=== PATIENT | female | born 1985 | race Caucasian/White ===

== ENCOUNTER 2017-04-20 10:01 | Emergency (ER) | payer MEDICAID ==
[2017-04-20 10:14] VITALS: RESP 18
[2017-04-20] MEDS ORDERED: Naproxen 550 mg Tab PO STA (11:05)
[2017-04-20] MEDS ORDERED: Naproxen 550 mg Tab PO ONE (11:08)
--- NOTE | 2017-04-20 11:45 | C.PDOC ---
History Of Present Illness Pt c/o lesion on left arm. Pt states she had subjective fever as well. She went to her PMD and was started on Clindamycin. Time Seen by Provider: 04/20/17 10:41 Chief Complaint (Nursing): Abnormal Skin Integrity History Per: Patient Onset/Duration Of Symptoms: Days (3) Current Symptoms Are (Timing): Still Present Location Of Injury: Left: Arm Severity: Moderate Additional History Per: Prior Records Past Medical History Reviewed: Historical Data, Nursing Documentation, Vital Signs Vital Signs: Last Vital Signs Temp 99.2 F 04/20/17 10:11 Pulse 101 H 04/20/17 10:11 Resp 18 04/20/17 10:11 BP 113/76 04/20/17 10:11 Pulse Ox 100 04/20/17 10:11 - Medical History PMH: No Chronic Diseases Surgical History: No Surg Hx - [facility] LOW CERVICAL (05/15/13) Family History: States: Unknown Family Hx - Social History Hx Tobacco Use: No Hx Alcohol Use: Yes Hx Substance Use: No - Immunization History Hx Tetanus Toxoid Vaccination: No Hx Influenza Vaccination: No Hx Pneumococcal Vaccination: No Review Of Systems Except As Marked, All Systems Reviewed And Found Negative. Constitutional: Positive for: Fever. Negative for: Weakness ENT: Positive for: Throat Pain. Negative for: Ear Pain, Ear Discharge Cardiovascular: Negative for: Chest Pain Respiratory: Negative for: Cough, Shortness of Breath Gastrointestinal: Negative for: Vomiting, Abdominal Pain, Diarrhea Genitourinary: Negative for: Dysuria Musculoskeletal: Negative for: Back Pain Skin: Positive for: Lesions Neurological: Positive for: Headache. Negative for: Weakness, Numbness, Seizures, Altered Mental Status Psych: Positive for: Depression. Negative for: Psychosis, Suicidal ideation Physical Exam - Physical Exam Appears: Non-toxic, No Acute Distress Skin: Warm, Dry, Rash (left arm with two pustules) Head: Atraumatic, Normacephalic Eye(s): bilateral: Normal Inspection, PERRL, EOMI Ear(s): Bilateral: Normal Oral Mucosa: Moist, No Drooling, No Trismus Tongue: Normal Appearing Lips: Normal Appearing Throat: Normal Neck: Normal ROM, No Supple Lymphatic: Adenopathy (posterior auricular) Cardiovascular: Rhythm Regular Respiratory: Normal Breath Sounds, No Accessory Muscle Use Gastrointestinal/Abdominal: Soft, No Tenderness Back: No CVA Tenderness Extremity: Normal ROM Neurological/Psych: Oriented x3, Normal Speech, Normal Cognition, Normal Motor, Normal Sensation ED Course And Treatment O2 Sat by Pulse Oximetry: 100 Pulse Ox Interpretation: Normal Disposition Counseled Patient/Family Regarding: Studies Performed, Diagnosis, Need For Followup - Disposition Referrals: Cipriano Ward Jr., MD [Medical Doctor] - Disposition: HOME/ ROUTINE Disposition Time: 11:48 Condition: IMPROVED Additional Instructions: Drink plenty of fluids. Take your Clindamycin 300mg four times a day. Follow up with your doctor. Return to the ER if you develop high fever, lethargy, vomiting , worsening of symptoms or if you have any other concerns. Forms: [facility] ([place]), General Discharge Instructions, Work Excuse - Clinical Impression Clinical Impression: Skin lesion of left arm, Lymphadenopathy of head and neck region
[2017-04-20 12:04] VITALS: BP 132/75; PULSE 95; TEMP 99.1; O2SAT 99
== END 2017-04-20 12:05 | disposition home or self-care (01) ==
LOC: C.ER 10:01
DX: L98.8 Other specified disorders of the skin and subcutaneous tissue (principal); R59.1 Generalized enlarged lymph nodes